=== PATIENT | male | born 1980 | race Caucasian/White ===

== ENCOUNTER → 2016-11-19 | Outpatient (CLI) | payer BC ==
[~2016-11-19] MED LIST: GADOBUTROL 10 ML VIAL IVP ONE
== END ==
LOC: FIMAGING 07:59
PROVIDERS: ATTEND Orthopaedic Surgery
DX: M70.21 Olecranon bursitis, right elbow (principal)
CPT/HCPCS: A9585

== ENCOUNTER → 2016-11-20 | Day surgery (SDC) | payer BC | END | disposition home or self-care (01) | LOC: FIMAGING 11:07 | PROVIDERS: ATTEND Internal Medicine Infectious Disease | PROC: 02HV33Z Insertion of Infusion Device into Superior Vena Cava, Percutaneous Approach (ICD-10-PCS; principal; 2016-11-20) | DX: M70.21 Olecranon bursitis, right elbow (principal) | CPT/HCPCS: 36569; 77001; C1751 ==